=== PATIENT | female | born 1955 | race Caucasian/White ===

== ENCOUNTER → 2021-01-07 | Outpatient (CLI) | payer MEDICARE, BC ==
[~2021-01-07] VITALS: Ht 147.3 cm; Wt 59.9 kg
[~2021-01-07] MED LIST: AMLODIPINE BES2.5 MG PO; ASPIRIN CHEWABL81 MG PO; ATORVASTATIN CA80 MG PO; CALCIUM 600 +1 EAC6 PO; CLOPIDOGREL75 MG PO; COREG 3.125M3.125 MG PO; FUROSEMIDE20 MG PO; ISOSORBIDE MON120 MG PO; LOSARTAN-HCTZ1 EACH PO; NITROSTAT0.4 MG SL; POTASSIUM CHLO10 ME1 PO; PROLIA INJ60 MG/1 ML SC; PROTONIX 40 MG40 M1 PO
== END ==
LOC: OPSV 11:00
DX: M81.0 Age-related osteoporosis without current pathological fracture (principal)
CPT/HCPCS: 96372

== ENCOUNTER → 2021-02-06 | Day surgery (SDC) | payer MEDICARE, BC ==
[~2021-02-06] VITALS: Ht 147.3 cm; Wt 59.0 kg
== END | disposition home or self-care (01) ==
LOC: OR 07:12
DX: K29.50 Unspecified chronic gastritis without bleeding (principal); K21.9 Gastro-esophageal reflux disease without esophagitis; I25.10 Atherosclerotic heart disease of native coronary artery without angina pectoris; I10 Essential (primary) hypertension; D45 Polycythemia vera; E78.00 Pure hypercholesterolemia, unspecified; M81.0 Age-related osteoporosis without current pathological fracture; Z88.0 Allergy status to penicillin; Z79.82 Long term (current) use of aspirin; Z95.5 Presence of coronary angioplasty implant and graft; Z98.51 Tubal ligation status; K25.9 Gastric ulcer, unspecified as acute or chronic, without hemorrhage or perforation; Z20.822 Contact with and (suspected) exposure to COVID-19; I44.7 Left bundle-branch block, unspecified
CPT/HCPCS: J2001; J2704; J7030

== ENCOUNTER → 2021-02-16 | Outpatient (CLI) | payer MEDICARE, BC | LOC: HEART 5 08:08 | DX: R07.9 Chest pain, unspecified (principal); I25.10 Atherosclerotic heart disease of native coronary artery without angina pectoris; I08.1 Rheumatic disorders of both mitral and tricuspid valves; I27.20 Pulmonary hypertension, unspecified | CPT/HCPCS: 78452; 93306; A9502; J2785 ==